=== PATIENT | male | born 1995 | race Two or more races ===

== ENCOUNTER 2019-06-09 23:06 | Emergency (ER) | payer OTHER ==
--- NOTE | 2019-06-09 23:32 | EDM.PDOC ---
ED HPI GENERAL MEDICAL PROBLEM - General Chief Complaint: Abdominal Pain Stated Complaint: LIVER PAIN Time Seen by Provider: 06/09/19 23:28 Source of Information: Reports: Patient History Limitations: Reports: No Limitations - History of Present Illness INITIAL COMMENTS - FREE TEXT/NARRATIVE: 24-year-old male with onset of right sided flank, upper abdominal and chest pain which has gradually worsened with time. Reports it is a pressure type pain that worse with palpation and movement. It was much worse tonight. He rated the pain as an 8/10. He states that he has had no nausea or vomiting. He has been able to eat and drink normally without affecting the pain. He has no shortness of breath. He's had no fevers. He reports that he had pain similar to this in the past and this resulted in him getting a liver biopsy and he was told that he had PHELPS or fatty liver. He does admit to using cocaine and abusing Adderall recently. He has no left-sided chest pain. He has no neck or jaw pain. No trauma. No cough. No numbness congestion. No sore throat. The pain in his right side has been continual for the past 2 days but just worse tonight. There are no other associated signs or symptoms. There are no other modifying factors. 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 [Unable to Verify Home Med List] 06/09/19 [History] Past Medical History Gastrointestinal History: Reports: Other (See Below) Other Gastrointestinal History: PHELPS Genitourinary History: Reports: Other (See Below) (Patient is on Truvada for preexposure prophylaxis) - Past Surgical History HEENT Surgical History: Reports: Tonsillectomy GI Surgical History: Reports: Appendectomy Social & Family History - Tobacco Use Smoking Status *Q: Current Every Day Smoker - Alcohol Use Alcohol Use History: Yes Alcohol Use Frequency: Monthly - Recreational Drug Use Recreational Drug Type: Reports: Amphetamines (Speed), Cocaine, Marijuana/ Hashish - Sexual History Sexual History: Reports: Same Sex Partner Other Sexual History Comment: On preexposure prophylaxis with Truvada - Living Situation & Occupation Social History Comment: He is here with a friend ED ROS GENERAL - Review of Systems Review Of Systems: See Below Constitutional: Reports: No Symptoms HEENT: Reports: No Symptoms Respiratory: Reports: No Symptoms Cardiovascular: Reports: Chest Pain (Right-sided) GI/Abdominal: Reports: Abdominal Pain (Right upper quadrant and right flank). Denies: Nausea, Vomiting : Reports: No Symptoms Musculoskeletal: Reports: No Symptoms Skin: Reports: No Symptoms Neurological: Reports: No Symptoms Hematologic/Lymphatic: Reports: No Symptoms Immunologic: Reports: No Symptoms ED EXAM, GI/ABD - Physical Exam Exam: See Below Exam Limited By: No Limitations General Appearance: Alert, WD/WN, Moderate Distress (Appears in some discomfort) Eyes: Bilateral: Normal Appearance (Sclera are anicteric), EOMI Ears: Normal External Exam, Hearing Grossly Normal Nose: Normal Inspection, Normal Mucosa, No Blood Throat/Mouth: Normal Inspection, Normal Lips, Normal Oropharynx, Normal Voice, No Airway Compromise Head: Atraumatic, Normocephalic Neck: Normal Inspection, Supple, Non-Tender, Full Range of Motion Respiratory/Chest: No Respiratory Distress, Lungs Clear, Normal Breath Sounds, No Accessory Muscle Use, Other (To palpation over the right costal margin and right lower chest) Cardiovascular: Normal Peripheral Pulses, Regular Rate, Rhythm, No Murmur GI/Abdominal Exam: Normal Bowel Sounds, Soft, No Organomegaly, Tender (In right upper quadrant and epigastrium) Back Exam: Normal Inspection, Full Range of Motion Extremities: Normal Inspection, Normal Range of Motion, Non-Tender, No Pedal Edema, Normal Capillary Refill Neurological: Alert, Oriented, CN II-XII Intact, Normal Cognition, No Motor/ Sensory Deficits Skin Exam: Warm, Dry, Intact, Normal Color, No Rash Lymphatic: No Adenopathy EKG INTERPRETATION EKG Date: 06/10/19 Time: 00:29 Rhythm: NSR Rate (Beats/Min): 69 [place]: Normal P-Wave: Present QRS: Normal ST-T: Normal QT: Normal Comparison: NA - No Prior EKG Course - Vital Signs Last Recorded V/S: Last Vital Signs Temp 36.6 C 06/09/19 23:10 Pulse 92 06/09/19 23:10 Resp 18 06/09/19 23:10 BP 144/77 H 06/09/19 23:10 Pulse Ox 98 06/09/19 23:10 - Orders/Labs/Meds Orders: Active Orders 24 hr Category Date Time Status EKG Documentation Completion [RC] ASDIRECTED Care 06/09/19 23:53 Active Abdomen Pelvis w Cont [CT] Stat Exams 06/10/19 01:07 Taken Sodium Chloride 0.9% [Saline Flush] Med 06/09/19 23:51 Active 10 ml FLUSH ASDIRECTED PRN Peripheral IV Insertion Adult [OM.PC] Routine Oth 06/09/19 23:51 Ordered EKG 12 Lead [EK] Routine Ther 06/09/19 23:53 Ordered Medication Orders Sodium Chloride (Saline Flush) 10 ml FLUSH ASDIRECTED PRN PRN Reason: Keep Vein Open Last Admin: 06/10/19 00:05 Dose: 10 ml Labs: Laboratory Tests 06/10/19 06/10/19 06/10/19 Range/Units 00:00 00:01 00:01 WBC 5.5 (4.5-12.0) X10-3/uL RBC 6.21 H (4.30-5.75) x10(6)uL Hgb 12.7 L (13.5-17.8) g/dL Hct 41.9 (30.0-51.3) % MCV 67.4 L (80-96) fL MCH 20.5 L (27.7-33.6) pg MCHC 30.4 L (32.2-35.4) g/dL RDW 15.6 H (11.5-15.5) % Plt Count 243 (125-369) X10(3)uL MPV 8.2 (7.4-10.4) fL Neut % (Auto) 67.4 (46-82) % Lymph % (Auto) 23.5 (13-37) % [place] % (Auto) 7.4 (4-12) % Eos % (Auto) 1 (1.0-5.0) % Baso % (Auto) 0 (0-2) % Neut # (Auto) 3.7 (1.6-8.3) # Lymph # (Auto) 1.3 (0.6-5.0) # [place] # (Auto) 0.4 (0.0-1.3) # Eos # (Auto) 0.1 (0.0-0.8) # Baso # (Auto) 0.0 (0.0-0.2) # Sodium 140 (135-145) mmol/L Potassium 3.6 (3.5-5.3) mmol/L Chloride 103 (100-110) mmol/L Carbon Dioxide 26 (21-32) mmol/L BUN 13 (7-18) mg/dL Creatinine 1.0 (0.70-1.30) mg/dL Est Cr Clr Drug Dosing 102.79 mL/min Estimated GFR (MDRD) > 60 (>60) BUN/Creatinine Ratio 13.0 (9-20) Glucose 116 (80-116) mg/dL Calcium 9.1 (8.6-10.2) mg/dL Total Bilirubin 0.4 (0.1-1.3) mg/dL AST 20 (5-25) IU/L ALT 24 (12-36) U/L Alkaline Phosphatase 51 L (56-112) IU/L Troponin I (<0.017-0.056) ng/mL Total Protein 7.0 (6.0-8.0) g/dL Albumin 4.0 (3.5-5.2) g/dL Globulin 3.0 g/dL Albumin/Globulin Ratio 1.3 Lipase (73-393) U/L Urine Color Yellow (YELLOW) Urine Appearance Clear (CLEAR) Urine pH 5.0 (5.0-6.5) Ur Specific [place] 1.020 (1.010-1.025) Urine Protein Negative (NEGATIVE) mg/dL Urine Glucose (UA) Normal (NORMAL) mg/dL Urine Ketones Negative (NEGATIVE) mg/dL Urine Occult Blood Negative (NEGATIVE) Urine Nitrite Negative (NEGATIVE) Urine Bilirubin Negative (NEGATIVE) Urine Urobilinogen Normal (NEGATIVE) mg/dL Ur Leukocyte Esterase Negative (NEGATIVE) Urine RBC 0-5 (0-5) Urine WBC 0-5 (0-5) Ur Squamous Epith Cells Rare (NS,R,O) Urine Bacteria Few H (NS) Urine Mucus Few H (NS) 06/10/19 06/10/19 Range/Units 00:01 00:01 WBC (4.5-12.0) X10-3/uL RBC (4.30-5.75) x10(6)uL Hgb (13.5-17.8) g/dL Hct (30.0-51.3) % MCV (80-96) fL MCH (27.7-33.6) pg MCHC (32.2-35.4) g/dL RDW (11.5-15.5) % Plt Count (125-369) X10(3)uL MPV (7.4-10.4) fL Neut % (Auto) (46-82) % Lymph % (Auto) (13-37) % [place] % (Auto) (4-12) % Eos % (Auto) (1.0-5.0) % Baso % (Auto) (0-2) % Neut # (Auto) (1.6-8.3) # Lymph # (Auto) (0.6-5.0) # [place] # (Auto) (0.0-1.3) # Eos # (Auto) (0.0-0.8) # Baso # (Auto) (0.0-0.2) # Sodium (135-145) mmol/L Potassium (3.5-5.3) mmol/L Chloride (100-110) mmol/L Carbon Dioxide (21-32) mmol/L BUN (7-18) mg/dL Creatinine (0.70-1.30) mg/dL Est Cr Clr Drug Dosing mL/min Estimated GFR (MDRD) (>60) BUN/Creatinine Ratio (9-20) Glucose (80-116) mg/dL Calcium (8.6-10.2) mg/dL Total Bilirubin (0.1-1.3) mg/dL AST (5-25) IU/L ALT (12-36) U/L Alkaline Phosphatase (56-112) IU/L Troponin I < 0.017 L (<0.017-0.056) ng/mL Total Protein (6.0-8.0) g/dL Albumin (3.5-5.2) g/dL Globulin g/dL Albumin/Globulin Ratio Lipase 167 (73-393) U/L Urine Color (YELLOW) Urine Appearance (CLEAR) Urine pH (5.0-6.5) Ur Specific [place] (1.010-1.025) Urine Protein (NEGATIVE) mg/dL Urine Glucose (UA) (NORMAL) mg/dL Urine Ketones (NEGATIVE) mg/dL Urine Occult Blood (NEGATIVE) Urine Nitrite (NEGATIVE) Urine Bilirubin (NEGATIVE) Urine Urobilinogen (NEGATIVE) mg/dL Ur Leukocyte Esterase (NEGATIVE) Urine RBC (0-5) Urine WBC (0-5) Ur Squamous Epith Cells (NS,R,O) Urine Bacteria (NS) Urine Mucus (NS) Meds: Medications Generic Name Dose Route Start Last Admin Trade Name Freq PRN Reason Stop Dose Admin Sodium Chloride 10 ml 06/09/19 23:51 06/10/19 00:05 Saline Flush FLUSH 10 ml ASDIRECTED PRN Administration Keep Vein Open Discontinued Medications Generic Name Dose Route Start Last Admin Trade Name Freq PRN Reason Stop Dose Admin Sodium Chloride 1,000 mls @ 999 mls/hr 06/09/19 23:54 06/10/19 00:05 Normal Saline IV 06/10/19 00:54 999 mls/hr .BOLUS ONE Administration Iopamidol 85 ml 06/10/19 01:27 06/10/19 01:37 Isovue-370 (76%) IV 06/10/19 01:28 85 ml . DIRECTED ONE Administration Ketorolac Tromethamine 30 mg 06/09/19 23:53 06/10/19 00:14 Toradol IVPUSH 06/09/19 23:54 30 mg ONETIME ONE Administration - Radiology Interpretation Free Text/Narrative:: CT scan of the abdomen and pelvis with IV contrast showed possible thickening of the urinary bladder but correlated to the urinalysis there is no evidence of infection on the urinalysis and the radiologist felt that this could just represent the decompressed state of the bladder. There was moderate colonic stool burden. Otherwise the CT scan was negative per the radiologist at [facility] - Re-Assessments/Exams Free Text/Narrative Re-Assessment/Exam: 06/10/19 00:58: Patient appeared to be resting comfortably but he reports that his pain is really unchanged after the IV fluids and Toradol. His blood tests are reassuringly normal including normal troponin and his EKG was normal as well. He has no tachycardia and he has a normal O2 saturation. He is very concerned about his pain and because he is having such severe pain I will do a CT scan of his abdomen and pelvis with IV contrast. 06/10/19 03:00: The CT scan of the patient's abdomen and pelvis showed nothing the correlated with the patient's pain pattern other than mild colonic stool burden at could represent constipation. The patient was sleeping and resting comfortably when I came into the room. He has remained vitally stable while in the emergency department. At this point, I am unsure why he is having right upper quadrant, right flank and right lower chest pain but it does not appear to be anything of a serious nature. I feel the patient is stable for discharge. Precautions an appropriate reasons for return to the emergency department were discussed with the patient prior to his discharge. Departure - Departure Time of Disposition: 03:06 Disposition: Home, Self-Care 01 Condition: Good Clinical Impression: Abdominal pain of unknown cause - Discharge Information Instructions: Constipation, Adult, [id number], Abdominal Pain, Adult, Easy-to -Read Referrals: PCP,None [Primary Care Provider] - Forms: ED Department Discharge Additional Instructions: Your blood tests were reassuringly normal. Your urine test was normal. The CT scan of your abdomen and pelvis showed no acute abnormality and nothing to explain the pain that you have been having. There was some evidence of constipation on your CT scan. You should increase your fluid intake. You may take ibuprofen as needed for pain. You may also take MiraLAX ([id number]) 1-2 times daily for constipation. Follow-up with your primary doctor this next week. Back to the emergency department for high fever, unrelenting vomiting or any other concerning sign or symptom. - My Orders Last 24 Hours: My Active Orders 06/09/19 23:51 Sodium Chloride 0.9% [Saline Flush] 10 ml FLUSH ASDIRECTED PRN Peripheral IV Insertion Adult [OM.PC] Routine 06/09/19 23:53 EKG Documentation Completion [RC] ASDIRECTED EKG 12 Lead [EK] Routine 06/10/19 01:07 Abdomen Pelvis w Cont [CT] Stat - Assessment/Plan Last 24 Hours: My Active Orders 06/09/19 23:51 Sodium Chloride 0.9% [Saline Flush] 10 ml FLUSH ASDIRECTED PRN Peripheral IV Insertion Adult [OM.PC] Routine 06/09/19 23:53 EKG Documentation Completion [RC] ASDIRECTED EKG 12 Lead [EK] Routine 06/10/19 01:07 Abdomen Pelvis w Cont [CT] Stat
[2019-06-10] MEDS: Sodium Chloride 0.9% 10 ML Syringe FLUSH PRN (00:05)
[2019-06-10] MEDS: Sodium Chloride 0.9% 1,000 ML IV ONE (00:05)
[2019-06-10] MEDS: Ketorolac 30 MG/ML SDV IVPUSH ONE (00:14)
[2019-06-10] MEDS: Iopamidol 755 Mg/ML 100 ML Bottle IV ONE (01:37)
[2019-06-10 03:30] VITALS: BP 128/45; PULSE 59
== END 2019-06-10 03:10 | disposition home or self-care (01) ==
LOC: FB.ED 23:06
DX: R10.13 Epigastric pain (principal); R10.11 Right upper quadrant pain; Z90.49 Acquired absence of other specified parts of digestive tract; F17.200 Nicotine dependence, unspecified, uncomplicated
CPT/HCPCS: 36415; 74177; 80053; 81001; 83690; 84484; 85025; 93005; 96361; 96374; 99284-25; J1885; J7030; Q9967